=== PATIENT | female | born 1985 | race Caucasian/White ===

== ENCOUNTER 2023-12-30 09:34 | Day surgery (SDC) | payer OTHER ==
[~2023-12-30] VITALS: Ht 160 cm; Wt 107.0 kg
[2023-12-30] VITALS (12 sets, daily range): BP systolic 111–137; BP diastolic 66–84; PULSE 72–106; TEMP 98.3–99.5
[~2023-12-30 09:34] MED LIST: HYDROmorphone 2 MG/1 ML VIAL IV PRN; LR 1,000 ML IV SCH; Meclizine 25 MG TAB PO SCH; Ondansetron 4 MG/2 ML VIAL IV PRN; Promethazine 25 MG/ML 1 ML VIAL IV PRN; diazePAM 5 MG TAB PO SCH; droPERidol 2.5 MG/ML 2 ML VIAL IV PRN; fentaNYL 50 MCG/ML 2 ML VIAL IV PRN; hydrALAZINE 20 MG/ML 1 ML VIAL IV PRN
[2023-12-30] MEDS ORDERED: fentaNYL 50 MCG/ML 2 ML VIAL ONE (10:09)
[2023-12-30] MEDS ORDERED: dexAMETHasone 10 MG/ML VIAL ONE ×2 (10:09→10:16)
[2023-12-30] MEDS ORDERED: Midazolam 2 MG/2 ML VIAL ONE (10:09)
[2023-12-30] MEDS ORDERED: BUSPAR10 MG PO (10:13)
[2023-12-30] MEDS ORDERED: JENCYCLA0.35 MG PO (10:14)
[2023-12-30] MEDS ORDERED: LEXAPRO20 MG PO (10:14)
[2023-12-30] MEDS ORDERED: LIPITOR20 MG PO (10:14)
[2023-12-30] MEDS ORDERED: TOPAMAX 100MG100 M1 PO (10:15)
[2023-12-30] MEDS ORDERED: VYVANSE50 MG PO (10:15)
[2023-12-30] MEDS ORDERED: ZANAFLEX 4MG TAB4 MG PO (10:15)
[2023-12-30] MEDS ORDERED: Ketorolac 30 MG/ML VIAL ONE (10:16)
[2023-12-30] MEDS ORDERED: NS 10 ML IV ONE (10:16)
[2023-12-30] MEDS ORDERED: Ondansetron 4 MG/2 ML VIAL ONE (10:16)
[2023-12-30] MEDS ORDERED: ZOFRAN ODT4 MG PO (10:16)
[2023-12-30] MEDS ORDERED: Lidocaine PF 2% (20 MG/ML) 5 ML VIAL ONE (10:16)
--- NOTE | 2023-12-30 11:00 | NUR ---
0949 Patient ambulatory to bay 8 with a steady gait, breathing even and unlabored. Patient is alert and oriented. Consents reviewed and signed by patient. IV established. LR infusing via dial a flow. Call light in reach. Warm blanket provided.
[2023-12-30] MEDS ORDERED: ePHEDrine 50 MG/ML VIAL ONE (13:15)
[2023-12-30] MEDS ORDERED: NORCO 325 MG-51 TAB PO (14:30)
[2023-12-30] MEDS ORDERED: oxyCODONE 5 MG TAB PO PRN ×2 (14:30)
[2023-12-30] MEDS ORDERED: Naloxone 0.4 MG/ML VIAL IV PRN (14:30)
[2023-12-30] MEDS ORDERED: ASPIRIN E.C. 8181 MG PO (14:30)
[2023-12-30] MEDS ORDERED: CEPHALEXIN500 M1 PO (14:30)
[2023-12-30] MEDS ORDERED: Morphine 4 MG/ML VIAL IV PRN (14:30)
--- NOTE | 2023-12-30 15:15 | NUR ---
full assessment completed, see interventions for further info
[2023-12-30] MEDS ORDERED: Acetaminophen 500 MG TAB PO SCH (15:25)
--- NOTE | 2023-12-30 15:43 | NUR ---
to room 330 per bed from PACU, awake and alert, IV infusing per dial-a-flow and set at 60ml/hr, O2 sat 97% on room air, has splint dressing to left ankle that is CD&I, left ankle is elevated on pillows with ice to medial aspect, states needs to void at this time, assisted up to bedside commode and is NWB to left ankle, voids qs and then assisted back to bed,
--- NOTE | 2023-12-30 15:45 | NUR ---
taking water and tolerates well, is beginning to feel some discomfort on lateral side of left ankle, medicated with scheduled tylenol
--- NOTE | 2023-12-30 16:05 | NUR ---
physical therapy in to work with pateint
--- NOTE | 2023-12-30 16:23 | NUR ---
Dr Del Rio and MICHELLE Salmeron in to see patient
--- NOTE | 2023-12-30 16:45 | NUR ---
resting in bed visiting with parents, tolerates water, instructed on ordering supper, verbalizes understanding
--- NOTE | 2023-12-30 17:23 | NUR ---
assisted up to bathroom with WATER TREATMENT PLANT OPERATOR assist and use of knee walker
--- NOTE | 2023-12-30 17:30 | NUR ---
continues to c/o pain lateral aspect of left ankle, medicated with roxicodone 5mg po
[2023-12-30] MEDS ORDERED: Ibuprofen 800 MG TAB PO SCH (18:25)
--- NOTE | 2023-12-30 18:50 | NUR ---
bedside shift report given to CARLOS Gasca, patient states her pain is better since having roxicodone
--- NOTE | 2023-12-30 19:20 | NUR ---
report received from aishwarya ferguson. pt assisted to bathroom utilizing knee scooter. pt did well with sba. pt now back in bed. pt denies pain at this time. fall precautions in place. call light in reach. all needs met at this time.
[2023-12-30] MEDS ORDERED: Ipratropium 0.02% Neb Soln 0.5 MG/2.5 ML UD IH SCH (20:00)
--- NOTE | 2023-12-30 20:10 | NUR ---
shift assessment complete, see documentation. pt denies pain but reporting some anxiety since the anesthesia has worn off. pt does take hs meds for anxiety. educated pt on breathing exercises. fall precautions in place. call light in reach. all needs met at this time.
[2023-12-30] MEDS ORDERED: Escitalopram 10 MG TAB PO SCH (21:00)
[2023-12-30] MEDS ORDERED: busPIRone 5 MG TAB PO SCH (21:00)
[2023-12-30] MEDS ORDERED: Atorvastatin 20 MG TAB PO SCH (21:00)
[2023-12-30] MEDS ORDERED: Topiramate 100 MG TAB PO SCH (21:00)
[2023-12-31] VITALS (7 sets, daily range): BP systolic 111–141; BP diastolic 82–90; PULSE 79–88; TEMP 98.2–98.7
[2023-12-31 06:08] LABS: BASO % 0.1 % (0.0-2.0); GRAN # 6.3 K/mm3 (1.4-6.5); GRAN % 86.8 % (42.2-75.2); HEMOGLOBIN 12.3 g/dl (12.5-16.0); LYMPH # 0.7 K/mm3 (1.2-3.4); LYMPH % 9.8 % (20.0-51.0); MEAN CELL VOLUME 89 fl (80.0-100.0); MEAN CORPUSCULAR HEMOGLOBIN 30 pg (27-31); MEAN CORPUSCULAR HGB CONC 34 g/dl (33.0-37.0); MEAN PLATELET VOLUME 9.5 fl (7.4-10.4); MONO # 0.2 K/mm3 (0.1-0.6); PLATELET COUNT 267 K/mm3 (130-400); REDCELL DISTRIBUTION WIDTH-CV 11.8 % (11.5-14.5)
[2023-12-31 06:09] LABS: HEMATOCRIT 36.5 % (37.0-47.0)
[2023-12-31 06:27] LABS: CALCIUM 8.1 mg/dL (8.4-10.2); CREATININE, serum 0.79 mg/dL (0.57-1.11); POTASSIUM 4.5 mmol/L (3.5-4.5)
--- NOTE | 2023-12-31 08:46 | NUR ---
0730: pt awake and alert, laying in bed. Vital signs stable. INT to left forearm intact, no signs of infection. left foot pain 5/10, gaining sensation back to left foot, still cannot move or feel toes. Toes warm to touch, capillary refill <3 seconds. Dorsalis pedis pulse palpable. denies concerns at this time
--- NOTE | 2023-12-31 09:38 | NUR ---
AGREE WITH STUDENT ASSESSMENTS THIS AM.
--- NOTE | 2023-12-31 09:57 | NUR ---
solid waste collection worker attended interdisciplinary clinical rounding with Dr. Del Rio. Dr. Gomez will still need to meet with patient to determine if patient is ready for discharge. SW met with patient and her mother, Sunshine, (P# [phone]). Patient lives in [place] but plans to stay with her mother for a couple weeks while she recovers. PCP is Dr. Aguilar, pharmacy is [facility]. No issues affording medications. Insurance is [employer]. No DPOA-HC at this time and does not want to complete one during the hospital stay. DME is knee scooter, wheelchair and crutches. Patient reports she is independent with ADLS and has her mother or friend to transport to and from appointments. Patient would like to return home at time of discharge. Patient reports she had outpatient PT for her last surgery and will discuss this with Dr. Gomez for orders to outpatient PT in [place]. Discharge plan: Home
[2023-12-31] MEDS ORDERED: Ondansetron 4 MG/2 ML VIAL IV PRN (11:00)
--- NOTE | 2023-12-31 12:23 | NUR ---
D: Initial visit: Child Care Centre Director stopped by the room on rounds. Pt was resting and content with her mom in the room. A: Pt has no needs right now. Pt and mom appreciated the visit. P: Child Care Centre Director informed the pt that if she needed anything from the professional programmer analyst area to let her nurse know. Child Care Centre Director will follow up as needed.
[2023-12-31] MEDS ORDERED: ROXICODONE 55 MG/TAB PO (13:50)
[2023-12-31] MEDS ORDERED: MOTRIN 800800 MG/TAB PO (13:50)
--- NOTE | 2023-12-31 15:02 | NUR ---
DISCHARGE INSTRUCTIONS REVIEWED WITH PT AND FAMILY. QUESTIONS SOLICITED AND ANSWERED. PT LEFT UNIT PER WHEEL CHAIR WITH STAFF.
== END 2023-12-31 15:40 | disposition home or self-care (01) ==
LOC: SDCO 09:34 → SURG 15:00 → SDCO 12-31 15:40
PROVIDERS: Physician Assistant
DX: M93.272 Osteochondritis dissecans, left ankle and joints of left foot (principal); E78.5 Hyperlipidemia, unspecified; F32.A Depression, unspecified; F41.9 Anxiety disorder, unspecified; F98.8 Other specified behavioral and emotional disorders with onset usually occurring in childhood and adolescence; J45.909 Unspecified asthma, uncomplicated; G43.909 Migraine, unspecified, not intractable, without status migrainosus; Z79.899 Other long term (current) drug therapy
CPT/HCPCS: OP; C1713; C1769; J0690; J1100; J1580; J1885; J2250; J2405; J2704; J2795; J3010; J7120